=== PATIENT | male | born 1975 | race Caucasian/White ===

== ENCOUNTER 2016-10-03 03:33 | Emergency (ER) | payer OTHER ==
[~2016-10-03] VITALS: Ht 157.5 cm; Wt 65.0 kg
[2016-10-03 03:35] VITALS: Ht 157.5 cm; Wt 65.0 kg
[2016-10-03] MEDS ORDERED: ALBU18HF INHALATION (03:38)
[2016-10-03] MEDS ORDERED: AZIT250T94 PO (03:38)
--- NOTE | 2016-10-03 03:44 | ERD ---
ER Documentation Chief Complaint Date/Time DATE: 10/03/16 TIME: 03:41 Chief Complaint HPI 41-year-old male no past medical history, history of smoking and marijuana use who presents with cough. Patient describes 24 hours of cough that is dry and nonproductive. The patient denies any fevers. No weight loss no hemoptysis, no night sweats. The patient is currently in police custody was evaluated by the alf nurse and sent to the emergency room because of wheezing and cough. ROS All systems reviewed and are negative except as per history of present illness. Medications Home Meds Active Scripts Azithromycin* (Zithromax*) 250 Mg Tablet, 250 MG PO .ZPACK DIRECTED, #6 TAB TAKE 500 MG (2 TABS) THE FIRST DAY THEN 250 MG (1 TAB) DAYS 2-5 Prov:CAROLEE SAL MD 10/03/16 Albuterol Sulfate* (Ventolin HFA*) 18 Gm Hfa.aer.ad, 2 PUFF INHALATION Q4H, #1 INHALER Prov:CAROLEE SAL MD 10/03/16 Allergies Allergies: Coded Allergies: No Known Allergy (Unverified , 11/16/12) PMhx/Soc History of Surgery: No Anesthesia Reaction: No Hx Neurological Disorder: No Hx Respiratory Disorders: No Hx Cardiac Disorders: No Hx Psychiatric Problems: No Hx Miscellaneous Medical Probl: No Hx Alcohol Use: No Hx Substance Use: No Hx Tobacco Use: No FmHx Family History: No diabetes Physical Exam Vitals Vital Signs Date Time Temp Pulse Resp B/P Pulse Ox O2 Delivery O2 Flow Rate FiO2 10/03/16 04:12 84 22 96 21 10/03/16 03:35 98.7 82 20 105/72 100 Physical Exam General: Well developed, well nourished, no acute distress Head: Normocephalic, atraumatic. Eyes: Pupils equally reactive, EOM intact ENT: Moist mucous membranes Neck: Supple, no lymphadenopathy Respiratory: Mild wheezing diffusely, good aeration, no rales or rhonchi, no respiratory distress Cardiovascular: RRR, no murmurs, rubs, or gallops Abdominal: Soft, non-tender, non-distended, no peritoneal signs : Deferred MSK: No edema, no unilateral swelling, 5/5 strength Neurologic: Alert and oriented, moving all extremities, normal speech, no focal weakness, no cerebellar signs Skin: No rash Psych: Normal mood Results 24 hrs Current Medications Medications (Trade) Dose Ordered Sig/Alicia Route PRN Reason Start Time Stop Time Status Last Admin Dose Admin Albuterol (Ventolin Hfa) 2 puff ONCE ONCE INH 10/03/16 04:00 10/03/16 04:01 DC 10/03/16 03:48 Albuterol (Proventil 0.083% (Neb)) 2.5 mg ONCE STAT NEB 10/03/16 03:58 10/03/16 03:59 DC 10/03/16 04:12 Ipratropium [place] (Atrovent 0.02% (Neb)) 0.5 mg ONCE STAT NEB 10/03/16 03:58 10/03/16 03:59 DC 10/03/16 04:12 Procedures/MDM The patient's clinical presentation is very consistent with an acute viral syndrome, acute bronchitis and possibly underlying mild COPD given prolonged smoking history. No signs or symptoms concerning for pneumonia, pneumothorax, pulmonary embolism. The patient has no significant risk factors for tuberculosis. At this time I do not believe the patient requires a chest x-ray. He will be given an albuterol MDI 2 puffs in the emergency room and started on azithromycin to cover atypical agents given his smoking history. I advised primary care follow-up in pulmonology testing as the patient may have underlying lung disease. The patient did require a DuoNeb with improved symptomatology. Saturations 94% and higher. The patient is a smoker. Oxygen saturation acceptable. Patient has improved symptoms, improved lung exam with decreased wheezing. The patient does not exhibit any clinical signs or symptoms concerning for serious bacterial infection or systemic illness. Based on history and clinical exam findings the patient does not appear to have evidence of pneumonia, strep pharyngitis, urinary tract infection, bacteremia, sepsis, or meningitis. For these reasons I do not believe it is necessary to obtain laboratory testing or diagnostic imaging. I believe it would be appropriate for symptom control, and close outpatient primary care follow-up. Smoking Cessation: I had a greater than 3 minute conversation with the patient regarding smoking cessation. We discussed multiple alternatives. We discussed follow up with the patient's primary care doctor within 24 to 48 hours as needed. We also discussed return to the emergency room for worsening symptoms or worsening condition. Discharge Medications: Ventolin, azithromycin Departure Diagnosis: Primary Impression: Acute bronchitis Bronchitis organism: unspecified organism Qualified Code: J20.9 - Acute bronchitis, unspecified organism Condition: Stable Patient Instructions: Bronchitis With Wheezing (Adult), Smoking Cessation Referrals: [facility] YOU HAVE RECEIVED A MEDICAL SCREENING EXAM AND THE RESULTS INDICATE THAT YOU DO NOT HAVE A CONDITION THAT REQUIRES URGENT TREATMENT IN THE EMERGENCY DEPARTMENT. FURTHER EVALUATION AND TREATMENT OF YOUR CONDITION CAN WAIT UNTIL YOU ARE SEEN IN YOUR DOCTORS OFFICE WITHIN THE NEXT 1-2 DAYS. IT IS YOUR RESPONSIBILITY TO MAKE AN APPOINTMENT FOR FOLOW-UP CARE. IF YOU HAVE A PRIMARY DOCTOR --you should call your primary doctor and schedule an appointment IF YOU DO NOT HAVE A PRIMARY DOCTOR YOU CAN CALL OUR PHYSICIAN REFERRAL HOTLINE AT IF YOU CAN NOT AFFORD TO SEE A PHYSICIAN YOU CAN CHOSE FROM THE FOLLOWING [facility] [address] [facility] [address] [facility] [place] [address] [facility] [address] [facility] [address] [facility] [facility]. [address] [facility] [facility] YOU HAVE RECEIVED A MEDICAL SCREENING EXAM AND THE RESULTS INDICATE THAT YOU DO NOT HAVE A CONDITION THAT REQUIRES URGENT TREATMENT IN THE EMERGENCY DEPARTMENT. FURTHER EVALUATION AND TREATMENT OF YOUR CONDITION CAN WAIT UNTIL YOU ARE SEEN IN YOUR DOCTORS OFFICE WITHIN THE NEXT 1-2 DAYS. IT IS YOUR RESPONSIBILITY TO MAKE AN APPOINTMENT FOR FOLOW-UP CARE. IF YOU HAVE A PRIMARY DOCTOR --you should call your primary doctor and schedule and appointment IF YOU DO NOT HAVE A PRIMARY DOCTOR YOU CAN CALL OUR PHYSICIAN REFERRAL HOTLINE AT . IF YOU CAN NOT AFFORD TO SEE A PHYSICIAN YOU CAN CHOSE FROM THE FOLLOWING [facility] INSTITUTIONS: [facility] [address] [place] [address] [facility] [address] [place] [address] [facility] [address] [place] [address] Additional Instructions: Call your primary care doctor TOMORROW for an appointment during the next 1 WEEK.Tell the psychiatric secretary that you were referred from this facility.See the doctor sooner or return here if your condition worsens before your appointment time. CAROLEE SAL MD Oct 03, 2016 03:44
[2016-10-03] MEDS ORDERED: ALBUTEROL 0.083% (NEB) 2.5 MG/3 ML AMP NEB STA (03:58)
[2016-10-03] MEDS ORDERED: IPRATROPIUM (NEB) 0.5 MG/2.5 ML AMP NEB STA (03:58)
[2016-10-03] MEDS ORDERED: ALBUTEROL 18 GM INHALER INH ONE (04:00)
[2016-10-03 04:28] VITALS: BP 108/80; PULSE 89; RESP 20; TEMP 98.7
== END 2016-10-03 04:29 | disposition home or self-care (01) ==
LOC: E/R 03:33
DX: J02.9 Acute pharyngitis, unspecified (principal); Z87.891 Personal history of nicotine dependence
CPT/HCPCS: 94664